=== PATIENT | female | born 1975 | race Caucasian/White ===

== ENCOUNTER → 2017-06-14 | Outpatient (CLI) | payer OTHER | LOC: FIMAGING 11:01 | PROVIDERS: ATTEND Registered Nurse General Practice | DX: Z12.31 Encounter for screening mammogram for malignant neoplasm of breast (principal) | CPT/HCPCS: G0202 ==

== ENCOUNTER 2017-07-04 17:01 | Emergency (ER) | payer OTHER ==
[2017-07-04 17:12] VITALS: TEMP 98.8
--- NOTE | 2017-07-04 18:29 | EDPHY ---
H & P Stated Complaint: Noticed lump L lower throat/L ant rib area last pm;soreness Time Seen by Provider: 07/04/17 18:22 HPI/ROS: CHIEF COMPLAINT: Left-sided throat lump HISTORY OF PRESENT ILLNESS: The patient is a 41 y/o female complaining of a lump on the left side of her neck for one day. She first noticed the lump last night, but it has progressively worsened today. This morning she began to have pain while swallowing, but does not have difficulty swallowing. She went to an urgent care this afternoon and they thought she might have mumps. Denies cold symptoms, sinus congestion or cough. Denies recent dental work. Denies thyroid disease. Denies paresthesias or numbness in extremities. No fever , chills, chest pain, shortness of breath, palpitations, vomiting, diarrhea, urinary complaints, headache, lightheadedness. REVIEW OF SYSTEMS: Aside from elements discussed in the HPI, a comprehensive 10-point review of systems was reviewed and is negative. PAST MEDICAL HISTORY: Denies SOCIAL HISTORY: , lives in [place] VITAL SIGNS: BP 160/100, others reviewed by me GENERAL: Well-developed, well-nourished, resting comfortably in no respiratory distress. HEENT: Atraumatic. Eyes: No icterus, no injection. Mouth: moist mucous membranes. No erythema or lesions. Neck: There is a palpable, moderately firm , mass and the base of the neck on the left side. Not pulsatile. Mildly tender to palpation. No overlying erythema. No fluctuance. LUNGS: Clear to auscultation bilaterally, no wheezes, rhonchi or rales. CARDIAC: Regular rate and rhythm, no rubs, murmurs or gallops. ABDOMEN: Soft, nontender, nondistended, bowel sounds normal. BACK: No CVA tenderness. EXTREMITIES: No trauma. No edema. Range of motion is normal throughout. NEURO: Alert and oriented, grossly nonfocal. SKIN: Warm and dry, no rash. PSYCHIATRIC: Normal mentation, no agitation. Portions of this note were transcribed by a medical record librarian. I personally performed a history, physical exam, medical decision making, and confirmed accuracy of information the transcribed note. - Personal History LMP (Females 10-55): 1-7 Days Ago Current Tetanus Diphtheria and Acellular Pertussis (TDAP): Yes - Medical/Surgical History Other PMH: healthy per pt - Social History Smoking Status: Never smoked Constitutional: Initial Vital Signs Temperature (C) 37.1 C 07/04/17 17:08 Heart Rate 90 07/04/17 17:08 Respiratory Rate 18 07/04/17 17:08 Blood Pressure 160/100 H 07/04/17 17:08 O2 Sat (%) 98 07/04/17 17:08 O2 Delivery Mode Room Air Allergies/Adverse Reactions: No Known Allergies Allergy (Unverified 07/04/17 17:07) Home Medications: Medication Instructions Recorded Control 07/04/17 Medical Decision Making - Diagnostics Imaging Results: Imaging Impressions Head/Neck Ultrasound 07/04/17 18:51 Impression: 1. The palpable area in the left neck corresponds to a mildly complex thyroid nodule. 2. Not fully assessed on this study, the thyroid gland demonstrates heterogeneous characterization. This could be followed up with repeat targeted thyroid ultrasound, and depending on clinical setting, aspiration of the cyst could be considered. Results called and discussed with Dr. Kelly Arredondo on July 04, 2017 at 2003 hours. Imaging: Discussed imaging studies w/ physically impaired teacher Radiologist, I viewed and interpreted images myself ED Course/Re-evaluation: The patient is a 41 y/o female presenting with a mildly tender mass at the base of her neck. She does not have any pharyngeal erythema. 2004: Spoke with radiologist, he reports the patients neck US shows a 2.8cm cystic structure off of the lower left pole of the thyroid. 2006: Reassessed patient and discussed imaging findings. I have referred her to an outpatient follow up visit with her PCP. Return precautions provided; patient is comfortable with this plan. Differential Diagnosis: Differential diagnoses for the patient's symptom complex was considered including but not limited to thyroid cyst, thyroglossal cyst, solid cystic mass , thyroid carcinoma, vascular etiology, abscess. - Data Points Medications Given: Discontinued Medications Ibuprofen (Motrin) 600 mg PO EDNOW ONE Stop: 07/04/17 18:52 Last Admin: 07/04/17 18:55 Dose: 600 mg Departure - Departure Disposition: Home, Routine, Self-Care Clinical Impression: Thyroid cyst Condition: Good Instructions: Cyst (ED) Additional Instructions: You have a cyst off the lower left pole of your thyroid. Follow up with your primary care provider in the next week. Return to the Emergency Department if you experience chest pain, shortness of breath, weakness, numbness in your extremities, fevers or other worsening of your symptoms. Referrals: POONAM BURRIS [Other] - As per Instructions
[2017-07-04] MEDS ORDERED: IBUPROFEN 600 MG TAB PO ONE (18:51)
[2017-07-04 20:41] VITALS: BP 135/96; PULSE 89; RESP 16; O2SAT 96
== END 2017-07-04 20:41 | disposition home or self-care (01) ==
DX: E04.1 Nontoxic single thyroid nodule (principal)

== ENCOUNTER → 2018-06-21 | Outpatient (CLI) | payer OTHER | LOC: FIMAGING 12:27 | PROVIDERS: ATTEND Physician Assistant | DX: Z12.31 Encounter for screening mammogram for malignant neoplasm of breast (principal) ==

== ENCOUNTER → 2018-09-05 | Outpatient (CLI) | payer OTHER | LOC: BMCIMAGING 07:35 | PROVIDERS: ATTEND Internal Medicine Endocrinology, Diabetes & Metabolism | DX: E04.2 Nontoxic multinodular goiter (principal); R59.0 Localized enlarged lymph nodes | CPT/HCPCS: 76536-PO ==